=== PATIENT | male | born 1975 | race Caucasian/White ===

== ENCOUNTER 2018-01-30 16:30 | Emergency (ER) | payer OTHER ==
[~2018-01-30] VITALS: Ht 182.9 cm; Wt 81.8 kg
[2018-01-30 16:54] VITALS: BP 137/92; PULSE 84; RESP 16; TEMP 98.5; O2SAT 98
[2018-01-30 17:10] VITALS: BP 120/84; PULSE 76; RESP 18; O2SAT 98
[2018-01-30] MEDS ORDERED: MECLIZINE HCL 25 MG TAB PO ONE (17:30)
[2018-01-30] MEDS ORDERED: SODIUM CHLORIDE 0.9% FLUSH 10 ML FLUSH IVF PRN (17:30)
--- NOTE | 2018-01-30 18:20 | RADRPT ---
EXAM DATE/TIME: 01/30/2018 18:03 [facility] COMPARISON: No previous studies available for comparison. INDICATIONS : Palpitations and dizziness. MEDICAL HISTORY : None. SURGICAL HISTORY : None. ENCOUNTER: Initial ACUITY: 2 days PAIN SCORE: 3/10 LOCATION: Bilateral chest FINDINGS: A single view of the chest demonstrates the lungs to be symmetrically aerated without evidence of mas s, infiltrate or effusion. 11 mm right upper lobe granuloma noted. The cardiomediastinal contours ar e unremarkable. Osseous structures are intact. CONCLUSION: No acute cardiopulmonary disease demonstrated. Jesus Jordan MD on January 30, 2018 at 18:17 Board Certified Radiologist. This report was verified electronically.
[2018-01-30 18:22] VITALS: BP_SYST 120; BP_SYST 121; BP_SYST 124; BP_DIAS 78; BP_DIAS 81; BP_DIAS 84; RESP 12; RESP 13
[2018-01-30 18:46] VITALS: BP 120/80; PULSE 82; RESP 18; O2SAT 99
[2018-01-30 19:03] LABS: AUTOMATED NEUTROPHIL # 5.7 TH/MM3 (1.8-7.7); BASOPHIL # 0.1 TH/MM3 (0-0.2); BASOPHIL % 0.7 % (0.0-2.0); EOSINOPHIL # 0.2 TH/MM3 (0-0.4); EOSINOPHIL % 2.4 % (0.0-4.0); HEMATOCRIT 47.8 % (39.0-51.0); HEMOGLOBIN 16.1 GM/DL (13.0-17.0); LYMPH % 30.9 % (9.0-44.0); MEAN CELL VOLUME 91.8 FL (80.0-100.0); MEAN CORPUSCULAR HEMOGLOBIN 30.9 PG (27.0-34.0); MEAN CORPUSCULAR HGB CONC 33.6 % (32.0-36.0); MEAN PLATELET VOLUME 8.2 FL (7.0-11.0); MONO % 7.5 % (0.0-8.0); MONOCYTE # 0.7 TH/MM3 (0-0.9); NEUT % 58.5 % (16.0-70.0); PLATELET COUNT 357 TH/MM3 (150-450); RED BLOOD COUNT 5.21 MIL/MM3 (4.50-5.90); RED CELL DISTRIBUTION WIDTH 12.6 % (11.6-17.2); WHITE BLOOD COUNT 9.8 TH/MM3 (4.0-11.0)
--- NOTE | 2018-01-30 19:05 | PD ---
Physical Exam Date Seen by Provider: Jan 30, 2018 Time Seen by Provider: 19:03 Narrative Please disregard note. Data Data Last Documented VS Vital Signs Date Time Temp Pulse Resp B/P (MAP) Pulse Ox O2 Delivery O2 Flow Rate FiO2 01/30/18 18:46 82 18 120/80 (93) 99 Room Air 01/30/18 16:54 98.5 Orders Orders Electrocardiogram (01/30/18 ) Electrocardiogram (01/30/18 17:28) Complete Blood Count With Diff (01/30/18 17:28) Comprehensive Metabolic Panel (01/30/18 17:28) Magnesium (Mg) (01/30/18 17:28) Ckmb (Isoenzyme) Profile (01/30/18 17:28) Troponin I (01/30/18 17:28) Chest, Single Ap (01/30/18 17:28) Ct Brain W/O Iv Contrast(Rout) (01/30/18 17:28) Ecg Monitoring (01/30/18 17:28) Iv Access Insert/Monitor (01/30/18 17:28) Oximetry (01/30/18 17:28) Meclizine (Antivert) (01/30/18 17:30) Sodium Chloride 0.9% Flush (Ns Flush) (01/30/18 17:30) Ed Discharge Order (01/30/18 19:59) Labs Laboratory Tests Test 01/30/18 18:39 White Blood Count 9.8 TH/MM3 Red Blood Count 5.21 MIL/MM3 Hemoglobin 16.1 GM/DL Hematocrit 47.8 % Mean Corpuscular Volume 91.8 FL Mean Corpuscular Hemoglobin 30.9 PG Mean Corpuscular Hemoglobin Concent 33.6 % Red Cell Distribution Width 12.6 % Platelet Count 357 TH/MM3 Mean Platelet Volume 8.2 FL Neutrophils (%) (Auto) 58.5 % Lymphocytes (%) (Auto) 30.9 % Monocytes (%) (Auto) 7.5 % Eosinophils (%) (Auto) 2.4 % Basophils (%) (Auto) 0.7 % Neutrophils # (Auto) 5.7 TH/MM3 Lymphocytes # (Auto) 3.0 TH/MM3 Monocytes # (Auto) 0.7 TH/MM3 Eosinophils # (Auto) 0.2 TH/MM3 Basophils # (Auto) 0.1 TH/MM3 CBC Comment DIFF FINAL Differential Comment Blood Urea Nitrogen 8 MG/DL Creatinine 0.94 MG/DL Random Glucose 74 MG/DL Total Protein 7.0 GM/DL Albumin 3.7 GM/DL Calcium Level 9.1 MG/DL Magnesium Level 2.1 MG/DL Alkaline Phosphatase 140 U/L Aspartate Amino Transf (AST/SGOT) 23 U/L Alanine Aminotransferase (ALT/SGPT) 43 U/L Total Bilirubin 0.3 MG/DL Sodium Level 141 MEQ/L Potassium Level 4.2 MEQ/L Chloride Level 108 MEQ/L Carbon Dioxide Level 23.3 MEQ/L Anion Gap 10 MEQ/L Estimat Glomerular Filtration Rate 88 ML/MIN Total Creatine Kinase 78 U/L Troponin I LESS THAN 0.02 NG/ML MDM Supervised Visit with DON: No Scripts Meclizine (Meclizine) 25 Mg Tab 25 MG PO TID Y for VERTIGO, #15 TAB 0 Refills Prov: Diony Almazan MD 01/30/18 Condition: Stable Toy Steve MD Jan 30, 2018 19:05
[2018-01-30 19:28] LABS: ALBUMIN 3.7 GM/DL (3.4-5.0); ALT (GPT) 43 U/L (12-78); AST (GOT) 23 U/L (15-37); BICARBONATE 23.3 MEQ/L (21.0-32.0); BLOOD UREA NITROGEN 8 MG/DL (7-18); CALCIUM 9.1 MG/DL (8.5-10.1); CHLORIDE 108 MEQ/L (98-107); CREATININE 0.94 MG/DL (0.60-1.30); GLOMERULAR FILTRATION RATE 88 ML/MIN (>89); GLUCOSE,RANDOM 74 MG/DL (74-106); MAGNESIUM 2.1 MG/DL (1.5-2.5); SODIUM (NA) 141 MEQ/L (136-145)
[2018-01-30 19:32] LABS: ALKALINE PHOSPHATASE 140 U/L (45-117); TOTAL BILIRUBIN ADULT 0.3 MG/DL (0.2-1.0); TROPONIN I LESS THAN 0.02 NG/ML (0.02-0.05)
--- NOTE | 2018-01-30 19:36 | PD ---
HPI Chief Complaint: Chest Pain Time Seen by Provider: 17:28 Travel History International Travel<30 days: No Contact w/Intl Traveler<30days: No Traveled to known affect area: No History of Present Illness HPI 42-year-old male patient presents to the ER today because he has been having episodes of dizziness especially with positional changes, states that the room is spinning when he lays down, having some chest discomfort, currently states is a 3 out of 10. He denies any shortness of breath, fevers, vomiting, or other symptoms. He denies any numbness or weakness. Modifying Factors: None Associated Signs & Symptoms: Dizziness Risk Factors: None PFSH Past Medical History Kidney Stones: Yes (2013) Past Surgical History Other Surgery: Yes (groin hernia - 9 years ago) Social History Alcohol Use: Yes (couple beers, sunday01/26/18) Tobacco Use: Yes (1 ppd) Substance Use: No Allergies-Medications (Allergen,Severity, Reaction): Coded Allergies: penicillin G (Verified Allergy, Unknown, Rash, 01/30/18) PT STATES HE WAS TOLD A CHILD HE HAD REDNESS AND SWELLING Reported Meds & Prescriptions Reported Meds & Active Scripts Active No Active Prescriptions or Reported Medications Review of Systems Except as stated in HPI: all other systems reviewed are Neg Physical Exam Narrative GENERAL: Well-developed middle-age male patient currently in mild distress. Awake and oriented 3. SKIN: Focused skin assessment warm/dry. HEAD: Atraumatic. Normocephalic. EYES: Pupils equal and round. No scleral icterus. No injection or drainage. ENT: No nasal bleeding or discharge. Mucous membranes pink and moist. NECK: Trachea midline. No JVD. Supple. CARDIOVASCULAR: Regular rate and rhythm. No murmur appreciated. RESPIRATORY: No accessory muscle use. Clear to auscultation. Breath sounds equal bilaterally. GASTROINTESTINAL: Abdomen soft, non-tender, nondistended. Hepatic and splenic margins not palpable. MUSCULOSKELETAL: No obvious deformities. No clubbing. No cyanosis. No edema. NEUROLOGICAL: Awake and alert. No obvious cranial nerve deficits. Motor grossly within normal limits. Normal speech. No pronator drift. Negative Romberg. PSYCHIATRIC: Appropriate mood and affect; insight and judgment normal. Data Data Last Documented VS Vital Signs Date Time Temp Pulse Resp B/P (MAP) Pulse Ox O2 Delivery O2 Flow Rate FiO2 01/30/18 18:46 82 18 120/80 (93) 99 Room Air 01/30/18 16:54 98.5 Orders Orders Electrocardiogram (01/30/18 ) Electrocardiogram (01/30/18 17:28) Complete Blood Count With Diff (01/30/18 17:28) Comprehensive Metabolic Panel (01/30/18 17:28) Magnesium (Mg) (01/30/18 17:28) Ckmb (Isoenzyme) Profile (01/30/18 17:28) Troponin I (01/30/18 17:28) Chest, Single Ap (01/30/18 17:28) Ct Brain W/O Iv Contrast(Rout) (01/30/18 17:28) Ecg Monitoring (01/30/18 17:28) Iv Access Insert/Monitor (01/30/18 17:28) Oximetry (01/30/18 17:28) Meclizine (Antivert) (01/30/18 17:30) Sodium Chloride 0.9% Flush (Ns Flush) (01/30/18 17:30) Labs Laboratory Tests Test 01/30/18 18:39 White Blood Count 9.8 TH/MM3 Red Blood Count 5.21 MIL/MM3 Hemoglobin 16.1 GM/DL Hematocrit 47.8 % Mean Corpuscular Volume 91.8 FL Mean Corpuscular Hemoglobin 30.9 PG Mean Corpuscular Hemoglobin Concent 33.6 % Red Cell Distribution Width 12.6 % Platelet Count 357 TH/MM3 Mean Platelet Volume 8.2 FL Neutrophils (%) (Auto) 58.5 % Lymphocytes (%) (Auto) 30.9 % Monocytes (%) (Auto) 7.5 % Eosinophils (%) (Auto) 2.4 % Basophils (%) (Auto) 0.7 % Neutrophils # (Auto) 5.7 TH/MM3 Lymphocytes # (Auto) 3.0 TH/MM3 Monocytes # (Auto) 0.7 TH/MM3 Eosinophils # (Auto) 0.2 TH/MM3 Basophils # (Auto) 0.1 TH/MM3 CBC Comment DIFF FINAL Differential Comment Blood Urea Nitrogen 8 MG/DL Creatinine 0.94 MG/DL Random Glucose 74 MG/DL Total Protein 7.0 GM/DL Albumin 3.7 GM/DL Calcium Level 9.1 MG/DL Magnesium Level 2.1 MG/DL Alkaline Phosphatase 140 U/L Aspartate Amino Transf (AST/SGOT) 23 U/L Alanine Aminotransferase (ALT/SGPT) 43 U/L Total Bilirubin 0.3 MG/DL Sodium Level 141 MEQ/L Potassium Level 4.2 MEQ/L Chloride Level 108 MEQ/L Carbon Dioxide Level 23.3 MEQ/L Anion Gap 10 MEQ/L Estimat Glomerular Filtration Rate 88 ML/MIN Total Creatine Kinase 78 U/L Troponin I LESS THAN 0.02 NG/ML MDM Medical Decision Making Medical Screen Exam Complete: Yes Emergency Medical Condition: Yes Medical Record Reviewed: Yes Differential Diagnosis Dysrhythmias versus dehydration versus metabolic issues versus vertigo versus acute intracranial processes Narrative Course Patient was given meclizine in the ER. He has no focal neurological deficits on exam. Lab work is fairly unremarkable in the ER. CAT scan pending. Physician Communication Physician Communication Case is signed out at 7 PM pending CAT scan. Disposition based on CAT scan and reevaluation. Diagnosis Primary Impression: Dizziness Scripts No Active Prescriptions or Reported Meds Condition: Stable Diony Almazan MD Jan 30, 2018 19:36
--- NOTE | 2018-01-30 19:46 | RADRPT ---
EXAM DATE/TIME: 01/30/2018 19:21 [facility] COMPARISON: No previous studies available for comparison. INDICATIONS : Dizziness. RADIATION DOSE: 37.82 CTDIvol (mGy) MEDICAL HISTORY : None SURGICAL HISTORY : None. ENCOUNTER: Initial ACUITY: 1 day PAIN SCALE: 5/10 LOCATION: cranial TECHNIQUE: Multiple contiguous axial images were obtained of the head. Using automated exposure control and adj ustment of the mA and/or kV according to patient size, radiation dose was kept as low as reasonably a chievable to obtain optimal diagnostic quality images. DICOM format image data is available electro nically for review and comparison. FINDINGS: CEREBRUM: The ventricles are normal for age. No evidence of midline shift, mass lesion, hemorrhage or acute in farction. No extra-axial fluid collections are seen. POSTERIOR FOSSA: The cerebellum and brainstem are intact. The 4th ventricle is midline. The cerebellopontine angle i s unremarkable. EXTRACRANIAL: The visualized portion of the orbits is intact. SKULL: The calvaria is intact. No evidence of skull fracture. CONCLUSION: Negative noncontrast head CT. Jesus Jordan MD on January 30, 2018 at 19:43 Board Certified Radiologist. This report was verified electronically.
[2018-01-30] MEDS ORDERED: MECL-62 PO (20:01)
--- NOTE | 2018-01-31 16:21 | EKG ---
Date Performed: 01/30/2018 Time Performed: 17:04:13 PTAGE: 42 years EKG: Sinus rhythm NORMAL ECG NO PREVIOUS TRACING DOCTOR: Fracisco Severino Interpretating Date/Time 01/31/2018 16:16:22
== END 2018-01-30 20:17 | disposition home or self-care (01) ==
LOC: NEPE 16:30
DX: R42 Dizziness and giddiness (principal); R07.89 Other chest pain; H61.23 Impacted cerumen, bilateral; Z72.0 Tobacco use
CPT/HCPCS: 70450; 71045; 80053; 82550; 83735; 84484; 85025; 93005; 99285